=== PATIENT | male | born 1975 ===

== ENCOUNTER 2019-11-14 05:54 | Day surgery (SDC) | payer OTHER | END 2019-11-14 17:57 | disposition home or self-care (01) | LOC: CIR.AMB 05:54 → U 05:54 → CIR.AMB 07:00 | PROVIDERS: ATTEND Specialist | DX: K40.90 Unilateral inguinal hernia, without obstruction or gangrene, not specified as recurrent (principal); Z20.828 Contact with and (suspected) exposure to other viral communicable diseases ==